=== PATIENT | female | born 1965 | race Caucasian/White ===

== ENCOUNTER 2021-09-12 08:29 | Outpatient (REF) | payer OTHER, SELFPAY ==
--- NOTE | ~2021-09-12 | CT_ITS ---
EXAMINATION: CT ABDOMEN AND PELVIS WITH CONTRAST CLINICAL INFORMATION: Thyroid cancer. COMPARISON: None TECHNIQUE: Multidetector volumetric images were obtained from the superior aspect of the liver through the pubic symphysis following administration 85 mL of Omnipaque 350 intravenous contrast. Sagittal and coronal reformatted images were obtained on the technologist's workstation. Oral contrast: Yes. This CT examination was performed using dose optimization techniques as appropriate, variously including the following: *Automated exposure control *Adjustment of mA and/or kV according to patient size (this includes techniques or standardized protocols for targeted exams where dose is matched to indication/reason for exam; i.e. extremities or head) *Use of iterative reconstruction technique DLP: 456 mGy-cm FINDINGS: LUNG BASES: The visualized lung bases are unremarkable. LIVER, GALLBLADDER, AND BILIARY TREE: The liver is normal in size, shape, and attenuation. There is a 5 mm low-attenuation lesion in the right lobe of the liver axial image 17 series 3. This is not compatible with a cyst and difficult to characterize due to small size. No other focal liver lesion is seen. The gallbladder is normal. There is no biliary duct dilatation. PANCREAS: Unremarkable. SPLEEN: Unremarkable. ADRENAL GLANDS: Unremarkable. KIDNEYS AND URETERS: There are multiple bilateral renal stones. The largest stone measures 3 x 6 mm in the lower pole of the right kidney. No hydronephrosis is seen. There is a 6 mm low-attenuation lesion in the midpole of the right kidney probably representing a cyst. BLADDER: The bladder is not optimally distended. There is a 4 mm stone in the bladder. GASTROINTESTINAL TRACT: The small and large bowel are unremarkable. The appendix is unremarkable. ABDOMINAL WALL: There is diastasis of the rectus muscles and small umbilical hernia containing fat. LYMPH NODES: Normal. VASCULAR: Unremarkable. PELVIC VISCERA: Unremarkable. OSSEOUS STRUCTURES: There are small sclerotic lesions in the spine, pelvis and bilateral proximal femurs. The largest measures 7 mm in the sacrum. There are degenerative changes of the spine. CT/CT abdomen pelvis w con IMPRESSION: 5 mm low-attenuation liver lesion high in the right lobe of the liver. This is difficult to characterize due to small size but does not appear to represent a simple cyst. Multiple bilateral renal stones. Small right renal cyst. 4 mm stone in the bladder. Multiple small nonspecific sclerotic bone lesions, largest measuring 7 mm in the sacrum. Fleischner guidelines were followed.
--- NOTE | ~2021-09-12 | CT_ITS ---
EXAMINATION: CT CHEST WITH CONTRAST CLINICAL INFORMATION: Thyroid cancer. COMPARISON: None TECHNIQUE: Multidetector volumetric CT imaging of the chest was obtained after the administration of 85 mL of Omnipaque 350 intravenous contrast without immediate adverse reactions. Axial MIP volume rendering provided. Sagittal and coronal reformatted images were obtained. This CT examination was performed using dose optimization techniques as appropriate, variously including the following: *Automated exposure control *Adjustment of mA and/or kV according to patient size (this includes techniques or standardized protocols for targeted exams where dose is matched to indication/reason for exam; i.e. extremities or head) *Use of iterative reconstruction technique DLP:114 mGy-cm FINDINGS: LINEN CONTROLLER: Unremarkable. LUNGS: There is a 2 mm right upper lobe nodule axial image 76 series 7. There is a 4 mm right upper lobe nodule axial image 117 series 7. There is a 2 mm right upper lobe nodule axial image 149 series 7. There is a 3 mm left upper lobe nodule axial image 182 series 7. There are small peripheral or subpleural nodules adjacent to the right lower lobe measuring 2 mm axial 241, 3 mm axial image 49 series 7. There is a 2 x 5 mm peripheral or subpleural left lower lobe nodule axial image 263 series 7. These probably represent subpleural lymph nodes. There is a 2 mm left upper lobe nodule axial image 263 series 7. There are several small peripheral or subpleural right lower lobe nodules measuring 1 to 2 mm for example axial image 4 97-444 series 7. MEDIASTINUM: The thyroid gland has been removed. There are no enlarged hilar or mediastinal lymph nodes. The heart does not appear enlarged. There is no pericardial effusion. The thoracic aorta is normal in caliber. There may be a small hiatal hernia. PLEURA: No pleural effusion or pleural thickening. AXILLA: No lymphadenopathy. OSSEOUS STRUCTURES: There is a sclerotic lesion in the left T5 vertebral body that measures 5 mm. No other bone lesion is seen. There are mild degenerative changes of the spine. CT/CT chest w con IMPRESSION: Small pulmonary nodules or micronodules. Postoperative thyroidectomy. No adenopathy. 5 mm nonspecific sclerotic lesion in the left T5 vertebral body. Fleischner guidelines were followed.
[2021-09-12] MEDS: iohexoL 350 MG/ML 100 ML INFUS..BTL 85 ML IV (09:09)
== END 2021-09-12 08:30 | disposition home or self-care (01) ==
LOC: HO.CT 08:29
PROVIDERS: PCP Nurse Practitioner Family; Visit Provider Emergency Medicine
DX: C73 Malignant neoplasm of thyroid gland (principal)
CPT/HCPCS: 71260; 74177; Q9967